=== PATIENT | female | born 2000 | race Two or more races ===

== ENCOUNTER 2023-03-08 22:55 | Emergency (ER) | payer SELFPAY ==
[~2023-03-08] VITALS: Ht 165.1 cm; Wt 121.7 kg
[2023-03-09 02:01] LABS: Rapid Influenza A Negative (Negative); Rapid Influenza B Negative (Negative)
[2023-03-09 02:02] LABS: COVID19 ANTIGEN SOFIA FIA NEGATIVE (NEGATIVE)
[2023-03-09] MEDS ORDERED: ALBUAER3 IN (03:26)
[2023-03-09] MEDS ORDERED: AZIT-43 PO (03:26)
[2023-03-09] MEDS ORDERED: ACET500T58 PO (03:26)
[2023-03-09] MEDS ORDERED: PRED20TA2 PO (03:26)
[2023-03-09] MEDS ORDERED: methylPREDNISolone SOD SUCC 125 MG/2 ML VL IM ONE (03:30)
[2023-03-09] MEDS ORDERED: cefTRIAXone SOD 1,000 MG VL IM ONE (03:30)
[2023-03-09 04:24] VITALS: BP 144/87; PULSE 104; RESP 16; TEMP 99.7; O2SAT 97
== END 2023-03-09 04:27 | disposition home or self-care (01) ==
LOC: ER 22:55
DX: J06.9 Acute upper respiratory infection, unspecified (principal); J45.909 Unspecified asthma, uncomplicated; Z20.822 Contact with and (suspected) exposure to COVID-19
CPT/HCPCS: 36415; 87426; 87804; 96372; 99284; J0696; J2930